=== PATIENT | male | born 1990 | race Caucasian/White ===

== ENCOUNTER 2024-01-07 08:32 | Emergency (ER) | payer BC, OTHER ==
[~2024-01-07] VITALS: Ht 188 cm; Wt 109.1 kg
[2024-01-07 08:38] VITALS: BP 156/107; PULSE 103; O2SAT 100
[2024-01-07 10:03] VITALS: RESP 16
[2024-01-07] MEDS: ketorolac trometh inj. 60 MG/2 ML VIAL IM ONE (10:03)
[2024-01-07] MEDS: dexamethasone sod phosphate 10mg/ml inj IM STA (10:03)
[2024-01-07] MEDS: cyclobenzaprine 10mg tablet PO ONE (10:04)
[2024-01-07] MEDS ORDERED: LIDO700A32 TOP (10:13)
[2024-01-07] MEDS ORDERED: CYCL-1 PO (10:13)
[2024-01-07 10:28] VITALS: TEMP 98
== END 2024-01-07 10:30 | disposition home or self-care (01) ==
LOC: ER 08:34
DX: M54.50 Low back pain, unspecified (principal)
CPT/HCPCS: 72110; 96372; 99284; J1100; J1885